=== PATIENT | male | born 1960 | race Caucasian/White ===

== ENCOUNTER 2022-09-25 08:42 | Inpatient (IN) | payer OTHER ==
[~2022-09-25] VITALS: Ht 177.8 cm; Wt 99.8 kg
[2022-09-25 09:38] LABS: Albumin 3.8 g/dL (3.4-5.0); Calcium 9.7 mg/dL (8.5-10.1); Potassium 4.1 mmol/L (3.5-5.1)
[2022-09-25 09:41] LABS: BUN/Creatinine Ratio 20.2 (10.0-20.0); Bilirubin, Total 0.7 mg/dL (0.2-1.0); Total Protein 6.8 g/dL (6.4-8.2)
[2022-09-25 09:43] LABS: Basophils # (auto) 0.1 10 ^3/uL (0-0.2); Basophils % (auto) 0.7 % (0.0-2.0); Eosinophils # (auto) 0.2 10 ^3/uL (0-0.8); Eosinophils % (auto) 1.3 % (0.0-7.0); Hematocrit 46.6 % (41.0-53.0); Hemoglobin 15.6 g/dL (13.5-17.5); Lymphocytes # (auto) 2.1 10 ^3/uL (0.4-5.4); Mean Corpuscular Hemoglobin 30.8 pg (28.0-32.0); Mean Corpuscular Hgb Conc. 33.6 g/dL (32.0-36.0); Mean Corpuscular Volume 91.8 fL (80.0-100.0); Monocytes # (auto) 1.2 10 ^3/uL (0-1.3); Monocytes % (auto) 9.1 % (0.0-12.0); Neutrophils # (auto) 9.7 10 ^3/uL (1.6-8.6); Neutrophils % (auto) 72.9 % (37.0-80.0); Nucleated Red Blood Cells % 0.1 %; Red Blood Cells 5.07 10^6/uL (4.5-5.90); Red Cell Distribution Width 14.5 % (11.8-14.3); White Blood Cell 13.2 10^3/uL (4.4-10.8)
[2022-09-25] MEDS ORDERED: INDOMETHACIN 25 MG CAP PO ONE (11:15)
[2022-09-25] MEDS ORDERED: ACETAMINOPHEN 325 MG TAB PO PRN (13:45)
[2022-09-25] MEDS ORDERED: NITROGLYCERIN 0.4 MG SL TAB SL PRN (13:45)
[2022-09-25] MEDS ORDERED: MORPHINE SULFATE INJ 2 MG/ml SYRG IV PRN ×2 (13:45)
[2022-09-25] MEDS ORDERED: HYDROcodone-ACET 5/325MG TAB PO PRN (13:45)
[2022-09-25] MEDS ORDERED: COLCHICINE 0.6 MG CAP PO ONE (13:45)
[2022-09-25 14:00] LABS: Urine Bacteria NONE SEEN /hpf (None Seen); Urine Blood Negative /uL (Negative); Urine Mucus FEW (None Seen); Urine Specific Gravity 1.025 (1.001-1.035); Urine WBC <1 /hpf (0 - 3)
[2022-09-25] MEDS ORDERED: hydrALAZINE HCL 20 MG/ML VL IV PRN (14:00)
[2022-09-25] MEDS ORDERED: FUROSEMIDE 20 MG/2 ML VIAL IV ONE (14:15)
[2022-09-25 14:39] LABS: Alcohol, Urine < 3.0 mg/dL (0-10); Amphetamine Screen, Urine NEGATIVE (NEGATIVE); Barbiturate Scree,Urine NEGATIVE (NEGATIVE); Benzodiazephine Screen, Urine NEGATIVE (NEGATIVE); Cannabinoid Screen, Urine NEGATIVE (NEGATIVE); Cocaine Screen, Urine NEGATIVE (NEGATIVE); Opiate Scree,Urine NEGATIVE (NEGATIVE); Phencyclidine Screen, Urine NEGATIVE (NEGATIVE)
[2022-09-25 15:17] LABS: Cholesterol 138 mg/dL (< 200)
[2022-09-25 15:20] LABS: HDL Cholesterol 46 mg/dL (40-59); LDL Cholesterol 78 mg/dL (< 100); Triglycerides 91 mg/dL (< 150)
[2022-09-25] MEDS: SOD CHL 0.45% 1,000 ML IV SCH (16:24)
[2022-09-25] MEDS: NICOTINE 7MG/24HR TOPICAL PATCH TD SCH (16:24)
[2022-09-26] VITALS (7 sets, daily range): BP systolic 113–141; BP diastolic 59–84
[2022-09-26] MEDS: SOD CHL 0.45% 1,000 ML IV SCH ×3 (00:51→20:15)
[2022-09-26] MEDS ORDERED: ALL100T PO (01:01)
[2022-09-26] MEDS ORDERED: LOSA-39 PO (01:01)
[2022-09-26] MEDS ORDERED: AMLO-489 PO (01:01)
[2022-09-26 06:36] LABS: Basophils # (auto) 0.1 10 ^3/uL (0-0.2); Eosinophils # (auto) 0.3 10 ^3/uL (0-0.8); Eosinophils % (auto) 3.6 % (0.0-7.0); Hematocrit 39.7 % (41.0-53.0); Hemoglobin 13.6 g/dL (13.5-17.5); Lymphocytes # (auto) 1.6 10 ^3/uL (0.4-5.4); Lymphocytes % (auto) 21.1 % (10.0-50.0); Mean Corpuscular Hgb Conc. 34.2 g/dL (32.0-36.0); Mean Corpuscular Volume 90.6 fL (80.0-100.0); Monocytes # (auto) 0.7 10 ^3/uL (0-1.3); Monocytes % (auto) 8.7 % (0.0-12.0); Neutrophils # (auto) 5.1 10 ^3/uL (1.6-8.6); Neutrophils % (auto) 65.6 % (37.0-80.0); Nucleated Red Blood Cells % 0.2 %; Red Blood Cells 4.38 10^6/uL (4.5-5.90); White Blood Cell 7.8 10^3/uL (4.4-10.8)
[2022-09-26 07:32] LABS: Albumin 2.8 g/dL (3.4-5.0); Calcium 9.2 mg/dL (8.5-10.1); Potassium 3.9 mmol/L (3.5-5.1)
[2022-09-26 07:37] LABS: BUN/Creatinine Ratio 18.7 (10.0-20.0); Bilirubin, Total 0.3 mg/dL (0.2-1.0)
[2022-09-26] MEDS: ALLOPURINOL 100 MG TAB PO SCH (10:13)
[2022-09-26] MEDS: NICOTINE 7MG/24HR TOPICAL PATCH TD SCH (10:14)
[2022-09-26] MEDS: PANTOPRAZOLE 40 MG/10 ML VIAL INJ IV SCH (10:24)
[2022-09-27 05:00] VITALS: BP 124/57
[2022-09-27] MEDS: methylPREDNISolone SOD SUCC 40 MG/ML VL IV SCH ×3 (06:00→22:00)
[2022-09-27] MEDS: SOD CHL 0.45% 1,000 ML IV SCH ×2 (06:15→17:36)
[2022-09-27 08:00] VITALS: BP 134/72
[2022-09-27 08:30] VITALS: BP 134/72
[2022-09-27] MEDS: COLCHICINE 0.6 MG CAP PO SCH ×2 (10:16→22:04)
[2022-09-27] MEDS: PANTOPRAZOLE 40 MG/10 ML VIAL INJ IV SCH (10:16)
[2022-09-27] MEDS: ALLOPURINOL 100 MG TAB PO SCH (10:16)
[2022-09-27] MEDS: NICOTINE 7MG/24HR TOPICAL PATCH TD SCH (10:17)
[2022-09-27] MEDS ORDERED: predniSONE 20 MG TAB PO ONE (11:45)
[2022-09-27 12:30] VITALS: BP 143/81
[2022-09-27 16:50] VITALS: BP 150/93
[2022-09-27 22:00] VITALS: BP 140/76
[2022-09-28] MEDS: SOD CHL 0.45% 1,000 ML IV SCH ×2 (02:15→12:15)
[2022-09-28 05:00] VITALS: BP 139/67
[2022-09-28] MEDS: methylPREDNISolone SOD SUCC 40 MG/ML VL IV SCH (06:00)
[2022-09-28 08:58] VITALS: BP 161/83
[2022-09-28] MEDS ORDERED: PRED20TA2 PO ×3 (11:11→11:39)
[2022-09-28] MEDS ORDERED: COLC0.6T56 PO ×3 (11:11→11:39)
[2022-09-28] MEDS ORDERED: predniSONE 20 MG TAB PO ONE (11:15)
[2022-09-28] MEDS: NICOTINE 7MG/24HR TOPICAL PATCH TD SCH (11:36)
[2022-09-28] MEDS: PANTOPRAZOLE 40 MG/10 ML VIAL INJ IV SCH (11:36)
[2022-09-28] MEDS: ALLOPURINOL 100 MG TAB PO SCH (11:36)
[2022-09-28] MEDS: COLCHICINE 0.6 MG CAP PO SCH (11:36)
[2022-09-28 13:00] VITALS: BP_SYST 154; BP_SYST 166; BP_DIAS 85; BP_DIAS 91
[2022-09-29] MEDS ORDERED: predniSONE 20 MG TAB PO SCH (10:00)
== END 2022-09-28 15:22 | disposition home or self-care (01) | DRG 554 ==
LOC: ER 08:42 → TELE 13:49 → TELE-WESTW 23:29 → UNDODISIN 09-26 17:26
PROVIDERS: ADMIT Registered Nurse; ATTEND Internal Medicine
DX: M10.9 Gout, unspecified (principal); R60.0 Localized edema; I10 Essential (primary) hypertension; F17.210 Nicotine dependence, cigarettes, uncomplicated; E66.9 Obesity, unspecified; Z71.6 Tobacco abuse counseling; Z68.31 Body mass index [BMI] 31.0-31.9, adult; Z79.899 Other long term (current) drug therapy
CPT/HCPCS: 36415; 70450; 71045; 80053; 80061; 80307; 81001; 83036; 83880; 84443; 84484; 84550; 85025; 93005; 93306; 93970; C9113; G0378